=== PATIENT | female | born 1945 | race Caucasian/White ===

== ENCOUNTER 2017-07-21 10:00 | Emergency (ER) | payer OTHER ==
[~2017-07-21] VITALS: Ht 157.5 cm; Wt 67.0 kg
[~2017-07-21 10:00] MED LIST: ESTRADIOL-NORE1 EAC2 PO; FOLIC ACID0.8 MG PO; LEVOTHYROXINE88 MCG PO; LO-DOSE ASPIRIN81 M1 PO; LUTEIN-ZEAXANT1 EACH PO; MELOXICAM15 MG PO; NEUPOGEN480 MCG/1. SC; OMEGA-3 2100 S1 EACH PO
[2017-07-21 10:36] LABS: HEMATOCRIT 37.9 % (36.0-46.0); HEMOGLOBIN 12.8 G/DL (11.9-15.5); MCHC 33.8 G/DL (30.0-36.0); MCV 91.8 FL (83-99); PLATELET COUNT 203 K/uL (156-360); RBC DIS.WIDTH-CV 12.9 % (11.8-14.6); RBC DIS.WIDTH-SD 43.4 % (39-53); RED BLOOD COUNT 4.13 M/uL (3.80-5.20); WHITE BLOOD COUNT 4.2 K/uL (4.1-10.2)
[2017-07-21 10:50] LABS: CHLORIDE 106 mEq/L (99-109); POTASSIUM 3.9 mEq/L (3.7-5.4); SODIUM 142 mEq/L (136-147)
[2017-07-21 10:52] LABS: GLUCOSE 132 mg/dL (70-99)
[2017-07-21 10:56] LABS: CREATININE 0.9 mg/dL (0.6-1.3); GFR ESTIMATE (CALCULATED) > 59 mL/min/; UREA NITROGEN (BUN) 14 mg/dL (9-23)
[2017-07-21 10:59] LABS: TROP-I INTERPRETATION NEGATIVE; TROPONIN-I < 0.01 ng/mL (0.0-0.30)
[2017-07-21] MEDS ORDERED: ZARXIO300 MCG/0. IM/SC (12:44)
[2017-07-21] MEDS ORDERED: ELAVIL25 MG PO (12:46)
[2017-07-21 14:26] LABS: TROP-I INTERPRETATION NEGATIVE; TROPONIN-I < 0.01 ng/mL (0.0-0.30)
[2017-07-21] MEDS ORDERED: XANAX0.25 MG PO (15:11)
[2017-07-21 15:38] VITALS: BP 145/68
== END 2017-07-21 15:44 | disposition home or self-care (01) ==
LOC: EME 10:00
PROVIDERS: Physician Assistant
DX: R00.2 Palpitations (principal); E03.9 Hypothyroidism, unspecified; F41.9 Anxiety disorder, unspecified; K21.9 Gastro-esophageal reflux disease without esophagitis; M19.90 Unspecified osteoarthritis, unspecified site; M79.7 Fibromyalgia; Z79.82 Long term (current) use of aspirin
CPT/HCPCS: 71046; 71275; 80048; 84484; 85027; 87502; 93005; 99281; 99284; J7030